=== PATIENT | female | born 1980 | race Caucasian/White ===

== ENCOUNTER 2018-06-27 10:41 | Emergency (ER) | payer MEDICAID, SELFPAY ==
[2018-06-27 10:52] VITALS: BP 148/97; PULSE 68; RESP 12; TEMP 37.1; O2SAT 97
[2018-06-27] MEDS: Benzocaine 20% Gel 30 GM JAR MM (11:57)
--- NOTE | 2018-06-27 12:07 | W.ED.GENAD ---
Discharge Plan Disposition Patient Disposition: HOME Condition: Stable Discharge Details Chief Complaint: DentalOral Clinical Impression: Dental abscess Primary Care Provider: ROGELIO SANTORO ED Provider: Sanjay Majano Home Meds and New Rx's Prescriptions: New hydrocodone-acetaminophen 5-325 mg tablet 1 tab PO Q6H PRN (Reason: pain) Qty: 4 RF: 0 amoxicillin-pot clavulanate 875-125 mg tablet 1 tab PO BID Qty: 20 RF: 0 Continue albuterol sulfate [Proventil HFA] 200 PUFF HFA aerosol inhaler 2 puff Inhalation Q4H PRN PRNQty: 1 RF: 0 inhalational spacing device [AeroChamber Plus Z Stat Sm Msk] 1 EACH spacer 1 ea Miscellaneous Q4H PRN PRNQty: 1 RF: 0 ibuprofen 800 mg Tablet 800 mg PO BID RF: 0 acetaminophen 500 mg Tablet 1,000 mg PO BID RF: 0 naproxen sodium [Aleve] 220 mg Tablet 440 mg PO BID RF: 0 Discharge Instructions Instructions: Dental Abscess (ED) Additional Instructions: Return immediately to the emergency department for any new or worsening otherwise call your dentist office tomorrow morning for arrangement of follow-up appointment preferably within the next week Stand Alone Forms: Work Release Referrals: ROGELIO SANTORO [Primary Care Provider] - (If you are unable to follow-up with your dentist follow-up with your primary care provider for reassessment of your infection.) Discharge Data Discharge Date/Time-TO BE ENTERED AT DEPARTURE: 06/27/18 13:28 Medical Decision Making Patient presenting to the emergency department for chief complaint of left-sided dental pain and facial swelling. Physical exam shows findings consistent with dental abscess and bedside ultrasound was utilized note a small pocket of fluid corresponding just above tooth #10. Patient consented to needle drainage of the area and 20% benzocaine gel was placed upon the tooth and then 1 mL of 1% lidocaine without epinephrine was instilled for a periapical block. When appropriate anesthetic level was achieved 18-gauge needle was inserted into the area of concern and small amount of purulent drainage was expressed. Patient had minimal complications of pain and bleeding. Patient placed on Augmentin twice daily for 10 days due to recently being on clindamycin. Patient was prescribed a limited quantity of narcotic pain medication for discomfort. Patient was encouraged to return for new or worsening symptoms otherwise to call her dentist office tomorrow morning and inform them of a worsening condition. After discussion of diagnosis and plan of care patient has no further needs, questions, or concerns and states clear understanding to return to the emergency department for any worsening symptoms. HPI General Mode of arrival: ambulatory. Date/Time Provider Initiated Documentation: 06/27/18 11:07. Limitations to Documentation: no limitations. Information obtained by: patient. History of Present Illness 38 year old F presents to the emergency department with the chief complaint of Dental pain, described as severe, with intensity rated at 9. Quality is described as sharp, and is localized to the mouth. Patient started experiencing this day(s) (2) and it has been constant. No relieving factors improve symptom(s), No exacerbating factors reported . Related Data Home Medications Medication Instructions Recorded Confirmed albuterol sulfate [Proventil HFA] 2 puff INHALATION Q4H PRN PRN #1 10/21/17 06/27/18 inh inhalational spacing device #1 spacer 10/21/17 [AeroChamber Plus Z Stat Sm Msk] acetaminophen 1,000 mg PO BID 06/27/18 06/27/18 amoxicillin-pot clavulanate 1 tab PO BID #20 tab 06/27/18 hydrocodone-acetaminophen 1 tab PO Q6H PRN #4 tab 06/27/18 ibuprofen 800 mg PO BID 06/27/18 06/27/18 naproxen sodium [Aleve] 440 mg PO BID 06/27/18 06/27/18 Previous Rx's Medication Instructions Recorded albuterol sulfate [Proventil HFA] 2 puff INHALATION Q4H PRN PRN #1 10/21/17 inh inhalational spacing device #1 spacer 10/21/17 [AeroChamber Plus Z Stat Sm Msk] amoxicillin-pot clavulanate 1 tab PO BID #20 tab 06/27/18 hydrocodone-acetaminophen 1 tab PO Q6H PRN #4 tab 06/27/18 Allergies Allergy/AdvReac Type Severity Reaction Status Date / Time No Known Allergies Allergy Unverified 06/27/18 10:58 General Stated Complaint: DentalOral SABRINA: 3 Review of Systems Constitutional Denies body ache(s), Denies chills and Denies fever(s) ENT Reports as per HPI, Reports dental pain, Denies neck pain and Denies throat swelling Cardiovascular Denies chest pain and Denies dyspnea Respiratory Denies dyspnea Musculoskeletal Denies neck pain Integumentary/Breasts Denies rash Neurologic Denies confusion and Denies sensory deficit Psychiatric Denies confusion Allergic/Immunologic Denies throat swelling PFSH Social History Smoking/Tobacco Use Status: Current every day Exam Const General: cooperative, no acute distress and acute distress moderate Orientation: alert, awake and oriented x3 HENMT Face and sinus: no erythema, edema on the left upper lip, no fluctuance and tenderness on the left upper lip Face images: 1. Area of swelling pain and discomfort Mouth: moist mucous membranes Teeth and gingiva: poor dentition Teeth image: 1. Missing portion of tooth #10 with erythema surrounding teeth 9-11, severe tenderness. Missing section of tooth #10 does have temporary filling in place. Throat: posterior oropharynx normal Eyes General: appearance normal, both eyes and all related structures Alignment and Position: alignment normal Periorbital: periorbital findings normal Pupils: PERRL Neck Neck: normal visual inspection, full ROM and no meningeal signs Resp Effort & Inspection: normal respiratory effort, able to speak in complete sentences and no respiratory distress Skin General skin exam: no rashes or lesions noted Neuro General: alert, awake, oriented x3, moves all extremities and no focal motor deficits Sensory Exam: no sensory deficits noted Course Vital Signs Temperature 37.1 C 06/27/18 10:52 Pulse 68 06/27/18 10:52 Respiratory Rate 12 06/27/18 10:52 Blood Pressure 148/97 H 06/27/18 10:52 Pulse Oximetry 97 06/27/18 10:52 Temperature 37.1 C 06/27/18 10:52 Temperature Source Temporal Artery Scan 06/27/18 10:52 Pulse 68 06/27/18 10:52 Respiratory Rate 12 06/27/18 10:52 Respiratory Effort Non-Labored 06/27/18 10:56 Blood Pressure 148/97 H 06/27/18 10:52 Blood Pressure Position Sitting 06/27/18 10:52 Pulse Oximetry 97 06/27/18 10:52 Oxygen Delivery Method Room Air 06/27/18 10:52 Oxygen Flow Rate 0 06/27/18 10:52 Pain Level 7 06/27/18 10:57
--- NOTE | 2018-06-27 12:13 | ED.GENADUL_ITS ---
Discharge Plan Disposition Patient Disposition: HOME Condition: Stable Discharge Details Chief Complaint: DentalOral Clinical Impression: Dental abscess Primary Care Provider: ROGELIO SANTORO ED Provider: Sanjay Majano Home Meds and New Rx's Prescriptions: New hydrocodone-acetaminophen 5-325 mg tablet 1 tab PO Q6H PRN (Reason: pain) Qty: 4 RF: 0 amoxicillin-pot clavulanate 875-125 mg tablet 1 tab PO BID Qty: 20 RF: 0 Continue albuterol sulfate [Proventil HFA] 200 PUFF HFA aerosol inhaler 2 puff Inhalation Q4H PRN PRNQty: 1 RF: 0 inhalational spacing device [AeroChamber Plus Z Stat Sm Msk] 1 EACH spacer 1 ea Miscellaneous Q4H PRN PRNQty: 1 RF: 0 ibuprofen 800 mg Tablet 800 mg PO BID RF: 0 acetaminophen 500 mg Tablet 1,000 mg PO BID RF: 0 naproxen sodium [Aleve] 220 mg Tablet 440 mg PO BID RF: 0 Discharge Instructions Instructions: Dental Abscess (ED) Additional Instructions: Return immediately to the emergency department for any new or worsening otherwise call your dentist office tomorrow morning for arrangement of follow- up appointment preferably within the next week Stand Alone Forms: Work Release Referrals: ROGELIO SANTORO [Primary Care Provider] - (If you are unable to follow-up with your dentist follow-up with your primary care provider for reassessment of your infection.) Discharge Data Discharge Date/Time-TO BE ENTERED AT DEPARTURE: 06/27/18 13:28 Medical Decision Making Patient presenting to the emergency department for chief complaint of left- sided dental pain and facial swelling. Physical exam shows findings consistent with dental abscess and bedside ultrasound was utilized note a small pocket of fluid corresponding just above tooth #10. Patient consented to needle drainage of the area and 20% benzocaine gel was placed upon the tooth and then 1 mL of 1 % lidocaine without epinephrine was instilled for a periapical block. When appropriate anesthetic level was achieved 18-gauge needle was inserted into the area of concern and small amount of purulent drainage was expressed. Patient had minimal complications of pain and bleeding. Patient placed on Augmentin twice daily for 10 days due to recently being on clindamycin. Patient was prescribed a limited quantity of narcotic pain medication for discomfort. Patient was encouraged to return for new or worsening symptoms otherwise to call her dentist office tomorrow morning and inform them of a worsening condition. After discussion of diagnosis and plan of care patient has no further needs, questions, or concerns and states clear understanding to return to the emergency department for any worsening symptoms. HPI General Mode of arrival: ambulatory . Date/Time Provider Initiated Documentation: 06/27/18 11:07 . Limitations to Documentation: no limitations . Information obtained by: patient . History of Present Illness 38 year old F presents to the emergency department with the chief complaint of Dental pain, described as severe, with intensity rated at 9. Quality is described as sharp, and is localized to the mouth. Patient started experiencing this day(s) (2) and it has been constant. No relieving factors improve symptom(s), No exacerbating factors reported . Related Data Home Medications Medication Instructions Recorded Confirmed albuterol sulfate [Proventil HFA] 2 puff INHALATION Q4H PRN PRN #1 10/21/17 inh inhalational spacing device #1 spacer 10/21/17 [AeroChamber Plus Z Stat Sm Msk] acetaminophen 1,000 mg PO BID 06/27/18 06/27/18 amoxicillin-pot clavulanate 1 tab PO BID #20 tab 06/27/18 hydrocodone-acetaminophen 1 tab PO Q6H PRN #4 tab 06/27/18 ibuprofen 800 mg PO BID 06/27/18 06/27/18 naproxen sodium [Aleve] 440 mg PO BID 06/27/18 06/27/18 Previous Rx's Medication Instructions Recorded albuterol sulfate [Proventil HFA] 2 puff INHALATION Q4H PRN PRN #1 10/21/17 inh inhalational spacing device #1 spacer 10/21/17 [AeroChamber Plus Z Stat Sm Msk] amoxicillin-pot clavulanate 1 tab PO BID #20 tab 06/27/18 hydrocodone-acetaminophen 1 tab PO Q6H PRN #4 tab 06/27/18 Allergies Allergy/AdvReac Type Severity Reaction Status Date / Time No Known Allergies Allergy Unverified 06/27/18 10:58 General Stated Complaint: DentalOral SABRINA: 3 Review of Systems Constitutional Denies body ache(s), Denies chills and Denies fever(s) ENT Reports as per HPI, Reports dental pain, Denies neck pain and Denies throat swelling Cardiovascular Denies chest pain and Denies dyspnea Respiratory Denies dyspnea Musculoskeletal Denies neck pain Integumentary/Breasts Denies rash Neurologic Denies confusion and Denies sensory deficit Psychiatric Denies confusion Allergic/Immunologic Denies throat swelling PFSH Social History Smoking/Tobacco Use Status: Current every day Exam Const General: cooperative, no acute distress and acute distress moderate Orientation: alert, awake and oriented x3 HENMT Face and sinus: no erythema, edema on the left upper lip, no fluctuance and tenderness on the left upper lip Face images: 2 1. Area of swelling pain and discomfort Mouth: moist mucous membranes Teeth and gingiva: poor dentition Teeth image: 2 1. Missing portion of tooth #10 with erythema surrounding teeth 9-11, severe tenderness. Missing section of tooth #10 does have temporary filling in place. Throat: posterior oropharynx normal Eyes General: appearance normal, both eyes and all related structures Alignment and Position: alignment normal Periorbital: periorbital findings normal Pupils: PERRL Neck Neck: normal visual inspection, full ROM and no meningeal signs Resp Effort & Inspection: normal respiratory effort, able to speak in complete sentences and no respiratory distress Skin General skin exam: no rashes or lesions noted Neuro General: alert, awake, oriented x3, moves all extremities and no focal motor deficits Sensory Exam: no sensory deficits noted Course Vital Signs Temperature 37.1 C 06/27/18 10:52 Pulse 68 06/27/18 10:52 Respiratory Rate 12 06/27/18 10:52 Blood Pressure 148/97 H 06/27/18 10:52 Pulse Oximetry 97 06/27/18 10:52 Temperature 37.1 C 06/27/18 10:52 Temperature Source Temporal Artery Scan 06/27/18 10:52 Pulse 68 06/27/18 10:52 Respiratory Rate 12 06/27/18 10:52 Respiratory Effort Non-Labored 06/27/18 10:56 Blood Pressure 148/97 H 06/27/18 10:52 Blood Pressure Position Sitting 06/27/18 10:52 Pulse Oximetry 97 06/27/18 10:52 Oxygen Delivery Method Room Air 06/27/18 10:52 Oxygen Flow Rate 0 06/27/18 10:52 Pain Level 7 06/27/18 10:57
[2018-06-27] MEDS: Amoxicillin 875/Clav. 125 TAB PO (13:25)
== END 2018-06-27 13:28 | disposition home or self-care (01) ==
PROVIDERS: Emergency Provider Nurse Practitioner Family; PCP Family Medicine
DX: K04.7 Periapical abscess without sinus (principal)
CPT/HCPCS: 10160; 99283